=== PATIENT | male | born 1950 | race Caucasian/White ===

== ENCOUNTER → 2018-12-15 | Outpatient (CLI) | payer MEDICARE ==
[~2018-12-15] MED LIST: CIPRO500 MG PO
--- OUTSIDE RECORDS SUMMARY | 2018-12-21 08:46 | XMS REPORT | Clinical Summary ---
Author Author [facility] Address Unknown Phone Unavailable Care Team Providers Care Staff Therapist Name Role Phone Emerson Charles MD PCP Allergies Comments Active Allergy Reactions Severity Noted Date Levofloxacin Anxiety Low 06/22/2018 Medications No known medications Active Problems Problem Noted Date Degenerative disc disease, cervical 06/22/2018 Acromioclavicular arthrosis, bilateral 06/22/2018 Tendinitis of right shoulder 06/22/2018 Encounters Care Team Description Date Type Specialty Dave Griggs MD Acute pain of right shoulder (Primary Dx); Chronic left shoulder pain; Cervical pain; Tendinitis of right shoulder; Acromioclavicular arthrosis, bilateral; Degenerative disc disease, cervical 06/22/2018 Office Visit Orthopedic Surgery after 12/20/2017 Family History Medical History Relation Name Comments Heart disease Father Heart disease Mother Relation Name Status Comments Father Mother Social History Date Tobacco Use Types Packs/Day Years Used Passive Smoke Exposure - Never Smoker Smokeless Tobacco: Never Used Alcohol Use Drinks/Week oz/Week Comments Yes Sex Assigned at Date Recorded Not on file Industry Job Start Date Occupation Not on file Not on file Not on file Travel End Travel History Travel Start No recent travel history available. Last Filed Vital Signs Time Taken Vital Sign Reading - Blood Pressure - - Pulse - - Temperature - - Respiratory Rate - - Oxygen Saturation - - Inhaled Oxygen - Concentration 06/22/2018 2:09 PM CDT Weight 104 kg (230 lb) 06/22/2018 2:09 PM CDT Height 182.9 cm (6') 06/22/2018 2:09 PM CDT Body Mass Index 31.19 Plan of Treatment Health Maintenance Due Date Last Done Comments COLON CANCER SCREENING 2002 SHINGLES VACCINES (#1) 2002 65+ PNEUMOCOCCAL VACCINE 2017 (1 of 2 - PCV13) PNEUMOCOCCAL 2017 POLYSACCHARIDE VACCINE AGE 65 AND OVER INFLUENZA VACCINE 05/24/2018 Procedures Comments Procedure Name Priority Date/Time Associated Diagnosis XR SHOULDERS BILATERAL Routine 06/22/2018 Chronic left shoulder 2:29 PM CDT pain XR CERVICAL SPINE 2 OR 3 Routine 06/22/2018 Cervical pain VW 2:29 PM CDT after 12/20/2017 Results * XR Shoulders Bilateral (06/22/2018 2:29 PM CDT) Narrative Performed At [facility] X-ray of the right shoulder demonstrates marked arthrosis of the acromioclavicular joint.He also demonstrates acromioclavicular arthrosis on the left side.There is no evidence of arthritis of that shoulder. Performing Organization Address [facility] Phone Number [facility] [phone] [place] [address] * XR Cervical Spine 2 Or 3 Vw (06/22/2018 2:29 PM CDT) Narrative Performed At [facility] X-ray of cervical spine demonstrates status post posterior facet fusion C4, C5 and C6 with degeneration above that.There is no instability on flexion, extension films.He appears to have some sclerosis consistent with arthritis in the [place] dens interval.There is no instability of that joint. Performing Organization Address [facility] Phone Number [facility] [address] [place] [address] after 12/20/2017 Insurance Payer Benefit Subscriber ID Type Phone Address Plan / Group AETNA MEDICARE AETNA xxxxxxxx O MEDICARE HMO/PPO [facility] Advance Directives Patient has advance care planning documents on file. For more information, sheri juarez contact: Kurt Page [phone] [place] [address]
== END ==
LOC: RAD 05:00 → OR 12-21 08:44 → EDSTATUS 12-21 11:00
PROVIDERS: ATTEND Internal Medicine Gastroenterology
DX: Z01.818 Encounter for other preprocedural examination (principal); R13.10 Dysphagia, unspecified; K29.70 Gastritis, unspecified, without bleeding; Z87.19 Personal history of other diseases of the digestive system; Z53.8 Procedure and treatment not carried out for other reasons
CPT/HCPCS: 93005